=== PATIENT | male | born 1995 | race Caucasian/White ===

== ENCOUNTER 2021-08-04 22:48 | Emergency (ER) | payer BC ==
[~2021-08-04] VITALS: Ht 177.8 cm; Wt 81.6 kg
[2021-08-04 23:07] VITALS: BP 132/72
--- NOTE | 2021-08-04 23:07 | NUR ---
PT LAINEY C/O R SIDED LOWER POSTERIOR HEADACHE RADIATING DOWN TO NECK SINCE 1399
--- NOTE | 2021-08-04 23:15 | NUR ---
Patient discharged to home in stable condition. Written and verbal after care instructions given. Patient verbalizes understanding of instruction. PT ambulatory with a steady gait
== END 2021-08-04 23:16 | disposition home or self-care (01) ==
LOC: ER 22:48
DX: S01.511A Laceration without foreign body of lip, initial encounter (principal); W22.8XXA Striking against or struck by other objects, initial encounter; Y93.89 Activity, other specified; Y92.89 Other specified places as the place of occurrence of the external cause; Y99.8 Other external cause status